=== PATIENT | male | born 1960 | race Caucasian/White ===

== ENCOUNTER 2023-10-25 14:10 | Outpatient (AMB) | payer BC, SELFPAY ==
--- NOTE | 2023-10-25 14:44 | MHC.PC.OV ---
Vital Signs 10/25/23 14:54 Height 5 ft 8 in Weight 279 lb 2 oz BMI 42.4 BP 104/62 Blood Pressure Location Lt brachial Position Sitting Respiration 16 Pulse 67 Pulse Source Pulse Oximeter Temp 98.6 F Temp Source Oral Pulse Oximetry (%) 97 Oxygen Delivery Method Room Air Intake Visit Reasons: Est Care DM, HTN Intake Note: New patient visit Packing Room Inspector Required: No Allergies lisinopril [LISINOPRIL] Allergy (Unknown, Verified 10/25/23 14:47) COUGH Wwoucgv-HYY-PtI Reductase Inhibitor [CXAMPMQ-LRZ-VAK REDUCTASE INHIBITOR] Allergy (Unknown, Verified 10/25/23 14:47) MUSCLE ACHES sulfa Allergy (Unknown, Uncoded 10/25/23 14:47) unknown' Medication List - Last Reconciled 10/25/23 by Mila Curtis MD atenolol 100 mg PO DAILY losartan 25 mg PO DAILY metformin ER 500 mg PO BID tirzepatide (Mounjaro) 7.5 mg (0.75 mL) subcut QWEEK 12 weeks Tobacco use date assessed: 10/25/23 Dental Screening Dental Screen Date: 10/25/23 Did you have a dental visit in the last 12 months?: Yes Did you have a dental problem in the last 6 months where you did not have access to dental care?: No Was dental information given to patient?: Patient has dentist HPI HPI Comments History of Present Illness Details The patient is a 62 year old male with a past medical history of diabetes, htn, GERD, low back pain, OA, presenting for follow up Type 2 diabetes: generally well controlled: On metformin, mounjaro 5mg weekly. Feels like he has adjusted to the mounjaro and it is not suppressing his appetite any longer. Statin intolerant. Or ARB CV: Off hctz. BP still on lower side. Asymptomatic. On atenolol losartan. Denies chest pain, denies shortness of breath OA: s/p b/l knee replacement 2020 and 2021. Dental prophylaxis per ortho Has colonoscopy rescheduled for December. This was due in 2022. [facility] Surgical History (Updated 10/25/23 @ 15:24 by Morenita Sandoval CMA) History of knee replacement Family History (Updated 10/25/23 @ 15:14 by Morenita Sandoval CMA) Mother Hypertension Diabetes Social History Housing: House Patient Tobacco Use Status: Never used Tobacco e-Cigarette/Vaping Use: Never Used Substance Use Type: Marijuana service: No Current occupational status: employed Current occupation: Self employeed Current occupational exposures/hazards: No Cognitive needs: No Hearing needs: No Vision needs: No Questionnaire PHQ-9 Over the last 2 weeks, how often have you been bothered by any of the following problems? 1. Little interest or pleasure in doing things: not at all 2. Feeling down, depressed, or hopeless: not at all 3. Trouble falling or staying asleep, or sleeping too much: nearly every day 4. Feeling tired or having little energy: not at all 5. Poor appetite or overeating: not at all 6. Feeling bad about yourself - or that you are a failure or have let yourself or your family down: not at all 7. Trouble concentrating on things, such as reading the newspaper or watching television: not at all 8. Moving or speaking so slowly that other people could have noticed. Or the opposite - being so fidgety or restless that you have been moving around a lot more than usual: not at all 9. Thoughts that you would be better off or of hurting yourself in some way: not at all Total score: 3 Depression Screening Interpretation: Negative (noted) Depression Screening Done: Yes 40948 - PHQ-9 Billing: Yes Source: Developed by Drs. Melvin Donnelly, Yi Crump, Jayy Mccarthy and colleagues, with an educational edson from [employer]. Thrive Questionnaire Date Thrive assessed: 10/25/23 I am a: Patient What is your living situation today?: I have a steady place to live Within the past 12 months, did the food you bought not last and you didn't have the money to get more?: Never true Within the past 12 months, did you worry whether your food would run out before you got money to buy more?: Never true Do you have trouble paying for medicines?: No Do you have trouble getting transportation to medical appointments?: No Do you have trouble paying your heating and electricity bill?: No Do you have trouble taking care of your child, family member or friend?: No Do you have trouble with day-to-day activities such as bathing, preparing meals, shopping, managing finances, etc.?: No Are you currently unemployed and looking for a job?: No Are you interested in more education?: No Please select the resources that you would like help with: None Currently or been in a relationship where the following occur: no concerns reported THRIVE Score: 0 AUDIT C Alcohol Use Questionnaire (AUDIT-C) 1. How often do you have a drink containing alcohol?: 2-4 times a month 2. How many drinks containing alcohol do you have on a typical day when you are drinking?: 1 or 2 3. How often do you have six or more drinks on one occasion?: Less than monthly Total Score: 3 ANA-7 AMB Questionnaire ANA-7 Date ANA - 7 assessed: 10/25/23 Feeling nervous, anxious, or on edge: 0 = Not at all Not being able to stop or control worryin = Not at all Worrying too much about different things: 0 = Not at all Trouble relaxin = Not at all Being so restless that it is hard to sit still: 0 = Not at all Becoming easily annoyed or irritable: 0 = Not at all Feeling afraid as if something awful might happen: 0 = Not at all Total ANA-7 score (0-4 normal; 5-9 mild; 10-14 moderate; 15-21 severe): 0 Source: Developed by Drs. Melvin Donnelly, Yi Crump, Jayy Mccarthy and colleagues, with an educational edson from [employer]. ANA-7 Assessment Billing ANA-7 Assessment Tool: ANA-7 Assessment 64281 Review of Systems Const Details: ROS CONSTITUTIONAL: Denies weight loss, fever and chills. HEENT: Denies changes in vision and hearing. RESPIRATORY: Denies SOB and cough. CV: Denies palpitations and CP GI: Denies abdominal pain, nausea, vomiting and diarrhea. : Denies dysuria and urinary frequency. MSK: Denies myalgia and joint pain. SKIN: Denies rash and pruritus. NEUROLOGICAL: Denies headache and syncope. PSYCHIATRIC: Denies recent changes in mood. Denies anxiety and depression. Physical exam (Primary Care) Vital Signs: Last Vital Signs Temp 98.6 F 10/25/23 14:54 Pulse 67 10/25/23 14:54 Resp 16 10/25/23 14:54 BP 104/62 10/25/23 14:54 Pulse Ox 97 10/25/23 14:54 Oxygen Delivery Method Room Air 10/25/23 14:54 PHYSICAL EXAM: GENERAL: Alert and oriented x 3. No acute distress. Well-nourished. EYES: EOMI. Anicteric. HENT: Moist mucous membranes. No scleral icterus. No cervical lymphadenopathy. LUNGS: Clear to auscultation bilaterally. No accessory muscle use.? CARDIOVASCULAR: Regular rate and rhythm. No murmur. No JVD.? ABDOMEN: Soft, non-tender and non-distended. No palpable masses.? EXTREMITIES: No edema. Non-tender.?SKIN: No rashes or lesions. Warm. NEUROLOGIC: No focal neurological deficits. CN II-XII grossly intact PSYCHIATRIC: Cooperative. Appropriate mood and affect. BMI result Body Mass Index 42.4 Tobacco/Smoking Status: Tobacco use Status Tobacco use date assessed 10/25/23 10/25/23 14:53 Patient Tobacco Use Status Never used Tobacco 10/25/23 15:15 e-Cigarette/Vaping Use Never Used 10/25/23 15:15 PHQ-9: PHQ-9 Score PHQ-9: Total score 3 10/25/23 15:15 Depression Screening Interpretation: Negative (noted) Thrive Assessment: Date of Thrive Assessment Date Thrive assessed 10/25/23 10/25/23 15:15 Currently or been in a relationship where the following occur: no concerns reported Assessment and Plan Assessment & Plan (1) Hypertension: Comment: controlled on current medications. Advised to call if symptoms of hypotension and will med adjust Code(s): I10 - Essential (primary) hypertension Qualifiers: Hypertension type: primary hypertension Qualified Code(s): I10 - Essential (primary) hypertension (2) Type 2 diabetes mellitus: Comment: controlled on current medications. due for a1c which is ordered. increase mounjaro to 7.5 to aid weight loss Code(s): E11.9 - Type 2 diabetes mellitus without complications Qualifiers: Diabetes mellitus complication detail: with polyneuropathy Diabetes mellitus complication status: with neurologic complications Diabetes mellitus long line teamster insulin use: without long line teamster use Qualified Code(s): E11.42 - Type 2 diabetes mellitus with diabetic polyneuropathy (3) Obesity: Code(s): E66.9 - Obesity, unspecified Qualifiers: Body mass index: BMI 40.0-44.9 Obesity classification: adult class 3 (BMI >= 40) Obesity type: due to excess calories Serious obesity comorbidity presence: with serious comorbidity Qualified Code(s): E66.01 - Morbid (severe) obesity due to excess calories; Z68.41 - Body mass index [BMI] 40.0-44.9, adult Orders: Orders Hemoglobin A1c Today E11.42 - Type 2 diabetes mellitus with diabetic polyneuropathy, E66.01 - Morbid (severe) obesity due to excess calories, I10 - Essential (primary) hypertension, Z68.41 - Body mass index [BMI] 40.0-44.9, adult Comprehensive Met. Panel Today E11.42 - Type 2 diabetes mellitus with diabetic polyneuropathy, E66.01 - Morbid (severe) obesity due to excess calories, I10 - Essential (primary) hypertension, Z68.41 - Body mass index [BMI] 40.0-44.9, adult TSH reflex Free T4 Today E11.42 - Type 2 diabetes mellitus with diabetic polyneuropathy, E66.01 - Morbid (severe) obesity due to excess calories, I10 - Essential (primary) hypertension, Z68.41 - Body mass index [BMI] 40.0-44.9, adult Medications: New tirzepatide (Mounjaro) 7.5 mg (0.75 mL) subcut QWEEK 12 weeks 9 mL 3RF Coding Level of Care Code Est Pt Level 4 (23060) Complex EM visit Add On G2211 Diagnoses Primary hypertension I10 Hypertension type: primary hypertension Type 2 diabetes mellitus with diabetic polyneuropathy, without long-term current use of insulin E11.42 Diabetes mellitus complication detail: with polyneuropathy Diabetes mellitus complication status: with neurologic complications Diabetes mellitus custodial insulin use: without long line teamster use Class 3 severe obesity due to excess calories with serious comorbidity and body mass index (BMI) of 40.0 to 44.9 in adult E66.01; Z68.41 Body mass index: BMI 40.0-44.9 Obesity classification: adult class 3 (BMI >= 40) Obesity type: due to excess calories Serious obesity comorbidity presence: with serious comorbidity Additional Codes ANA-7 Assessment Billing - ANA-7 Assessment Tool: ANA-7 Assessment [id number] ([id number]) Time Spent (min) 38
[2023-10-25 14:54] VITALS: BP 104/62; PULSE 67; RESP 16; TEMP 37; O2SAT 97; BMI 42.4
== END 2023-10-25 15:31 | disposition home or self-care (01) ==
LOC: HO.HMGFM 14:30
PROVIDERS: PCP Internal Medicine; Visit Provider Internal Medicine
DX: I10 Essential (primary) hypertension (principal); E11.42 Type 2 diabetes mellitus with diabetic polyneuropathy; E66.01 Morbid (severe) obesity due to excess calories; Z68.41 Body mass index [BMI] 40.0-44.9, adult
CPT/HCPCS: 99214; G2211

== ENCOUNTER 2024-02-29 11:27 | Outpatient (REF) | payer BC, SELFPAY ==
[2024-02-29 14:51] LABS: Estimated Average Glucose 111 mg/dL; Hemoglobin A1c % 5.5 % (<6.0)
[2024-02-29 15:06] LABS: Alanine Aminotransferase 19 U/L (0-40); Albumin Level 4.1 g/dL (3.5-5.0); Alkaline Phosphatase 91 U/L (39-117); Anion Gap 12 (12-20); Aspartate Amino Transferase 17 U/L (5-37); Bilirubin Total 0.6 mg/dL (0.0-1.0); Blood Urea Nitrogen 13 mg/dL (9-16); Calcium 9.6 mg/dL (8.4-10.2); Carbon Dioxide 26 mmol/L (22-29); Chloride 103 mmol/L (96-108); Estimated Glomerular Filt Rate > 60; Glucose Random 100 mg/dL (60-115); Potassium 4.1 mmol/L (3.3-5.1); Sodium 137 mmol/L (135-145); Total Protein 7.8 g/dL (6.5-8.0)
[2024-02-29 15:24] LABS: TSH reflex Free T4 2.14 uIU/mL (0.32-4.0)
== END 2024-02-29 11:28 | disposition home or self-care (01) ==
LOC: HO.WFDLDS 11:27
PROVIDERS: Visit Provider Internal Medicine
DX: E66.01 Morbid (severe) obesity due to excess calories (principal); Z68.41 Body mass index [BMI] 40.0-44.9, adult; E11.42 Type 2 diabetes mellitus with diabetic polyneuropathy; I10 Essential (primary) hypertension
CPT/HCPCS: 36415; 80053; 83036; 84443

== ENCOUNTER 2024-02-29 12:55 | Outpatient (AMB) | payer BC, SELFPAY ==
--- NOTE | 2024-02-29 13:16 | MHC.PC.OV ---
Vital Signs 02/29/24 13:17 Height 5 ft 8 in Weight 271 lb 8 oz BMI 41.3 BP 132/74 Blood Pressure Location Rt brachial Position Sitting Respiration 15 Pulse 88 Pulse Oximetry (%) 96 Oxygen Delivery Method Room Air Intake Visit Reasons: 4 mth follow up DM, HTN Intake Note: follow up on htn, dm. patient patient just had colonoscopy in december Allergies lisinopril [LISINOPRIL] Allergy (Unknown, Verified 02/29/24 13:21) COUGH Hqjkzbd-AME-NgO Reductase Inhibitor [DSMIYGT-RPA-XWR REDUCTASE INHIBITOR] Allergy (Unknown, Verified 02/29/24 13:21) MUSCLE ACHES sulfa Allergy (Unknown, Uncoded 10/25/23 14:47) unknown' Tobacco use date assessed: 10/25/23 Dental Screening Dental Screen Date: 10/25/23 HPI HPI Comments History of Present Illness Details The patient is a 63 year old male with a past medical history of diabetes, htn, GERD, low back pain, OA, presenting for follow up Type 2 diabetes: generally well controlled: On metformin, mounjaro. Tolerating well. Statin intolerant. On ARB CV: Off hctz. BP still on lower side. Asymptomatic. On atenolol, losartan. Denies chest pain, denies shortness of breath OA: s/p b/l knee replacement 2020 and 2021. Dental prophylaxis per ortho Colonoscopy December 2023 - 10 years. ROS CONSTITUTIONAL: Denies weight loss, fever and chills. HEENT: Denies changes in vision and hearing. RESPIRATORY: Denies SOB and cough. CV: Denies palpitations and CP GI: Denies abdominal pain, nausea, vomiting and diarrhea. : Denies dysuria and urinary frequency. MSK: Denies new myalgia and joint pain. SKIN: jock rash NEUROLOGICAL: Denies headache PSYCHIATRIC: Denies recent changes in mood. PHYSICAL EXAM: GENERAL: Alert and oriented x 3. NAD EYES: EOMI. Anicteric. HENT: Moist mucous membranes. No scleral icterus. No cervical lymphadenopathy. LUNGS: Clear to auscultation bilaterally. CARDIOVASCULAR: Regular rate and rhythm. No murmur. No JVD. ABDOMEN: Soft, non-tender +bs EXTREMITIES: No edema. Non-tender. SKIN: No rashes or lesions. Warm. NEUROLOGIC: No focal neurological deficits. CN II-XII grossly intact PSYCHIATRIC: Cooperative. Appropriate mood and affect [facility] Medical History Osteoarthritis Nephrolithiasis Hypertension Type 2 diabetes mellitus Obesity GERD (gastroesophageal reflux disease) Surgical History History of left knee replacement History of total right knee replacement (TKR) Family History Mother Hypertension Diabetes Social History Housing: House Patient Tobacco Use Status: Never used Tobacco e-Cigarette/Vaping Use: Never Used Substance Use Type: Marijuana service: No Current occupational status: employed Current occupation: Self employeed Current occupational exposures/hazards: No Cognitive needs: No Hearing needs: No Vision needs: No Questionnaire Thrive Questionnaire Date Thrive assessed: 10/25/23 ANA-7 AMB Questionnaire ANA-7 Date ANA - 7 assessed: 10/25/23 Source: Developed by Drs. Melvin Donnelly, Yi Crump, Jayy Mccarthy and colleagues, with an educational edson from [employer]. Physical exam (Primary Care) Vital Signs: Last Vital Signs Pulse 88 02/29/24 13:17 Resp 15 02/29/24 13:17 BP 132/74 02/29/24 13:17 Pulse Ox 96 02/29/24 13:17 Oxygen Delivery Method Room Air 02/29/24 13:17 BMI result Body Mass Index 41.3 Tobacco/Smoking Status: Tobacco use Status Tobacco use date assessed 10/25/23 02/29/24 13:23 Patient Tobacco Use Status Never used Tobacco 02/29/24 13:23 e-Cigarette/Vaping Use Never Used 02/29/24 13:23 Thrive Assessment: Date of Thrive Assessment Date Thrive assessed 10/25/23 02/29/24 13:23 Assessment and Plan Assessment & Plan (1) Type 2 diabetes mellitus: Comment: controlled on current medications. due for a1c which is ordered. increase mounjaro to 7.5 to aid weight loss Code(s): E11.9 - Type 2 diabetes mellitus without complications Qualifiers: Diabetes mellitus complication detail: with polyneuropathy Diabetes mellitus complication status: with neurologic complications Diabetes mellitus senior living insulin use: without medical terminologist use Qualified Code(s): E11.42 - Type 2 diabetes mellitus with diabetic polyneuropathy Plan: Controlled on current medications. Labs ordered for next visit. (2) Hypertension: Code(s): I10 - Essential (primary) hypertension Qualifiers: Hypertension type: primary hypertension Qualified Code(s): I10 - Essential (primary) hypertension Plan: controlled on current medications (3) Obesity: Code(s): E66.9 - Obesity, unspecified Qualifiers: Body mass index: BMI 40.0-44.9 Obesity classification: adult class 3 (BMI >= 40) Obesity type: due to excess calories Serious obesity comorbidity presence: with serious comorbidity Qualified Code(s): E66.01 - Morbid (severe) obesity due to excess calories; Z68.41 - Body mass index [BMI] 40.0-44.9, adult Orders: Orders Microalbumin, Random (w Creat) 02/29/24 E11.42 - Type 2 diabetes mellitus with diabetic polyneuropathy, E66.01 - Morbid (severe) obesity due to excess calories, I10 - Essential (primary) hypertension, Z68.41 - Body mass index [BMI] 40.0-44.9, adult Lipid Panel 02/29/24 E11.42 - Type 2 diabetes mellitus with diabetic polyneuropathy, E66.01 - Morbid (severe) obesity due to excess calories, I10 - Essential (primary) hypertension, Z68.41 - Body mass index [BMI] 40.0-44.9, adult Complete Blood Count Auto Diff 02/29/24 E11.42 - Type 2 diabetes mellitus with diabetic polyneuropathy, E66.01 - Morbid (severe) obesity due to excess calories, I10 - Essential (primary) hypertension, Z68.41 - Body mass index [BMI] 40.0-44.9, adult Medications: New clotrimazole-betamethasone 1-0.05 % 1 appl topical BID 45 grams 3RF 4 weeks Coding Level of Care Code Est Pt Level 4 (51038) Diagnoses Type 2 diabetes mellitus with diabetic polyneuropathy, without long-term current use of insulin E11.42 Diabetes mellitus complication detail: with polyneuropathy Diabetes mellitus complication status: with neurologic complications Diabetes mellitus senior living insulin use: without medical terminologist use Primary hypertension I10 Hypertension type: primary hypertension Class 3 severe obesity due to excess calories with serious comorbidity and body mass index (BMI) of 40.0 to 44.9 in adult E66.01; Z68.41 Body mass index: BMI 40.0-44.9 Obesity classification: adult class 3 (BMI >= 40) Obesity type: due to excess calories Serious obesity comorbidity presence: with serious comorbidity
[2024-02-29 13:17] VITALS: BP 132/74; PULSE 88; RESP 15; O2SAT 96; BMI 41.3
== END 2024-02-29 13:59 | disposition home or self-care (01) ==
PROVIDERS: PCP Internal Medicine; Visit Provider Internal Medicine
DX: E11.42 Type 2 diabetes mellitus with diabetic polyneuropathy (principal); I10 Essential (primary) hypertension; E66.01 Morbid (severe) obesity due to excess calories; Z68.41 Body mass index [BMI] 40.0-44.9, adult
CPT/HCPCS: 99214

== ENCOUNTER 2024-05-08 13:57 | Outpatient (AMB) | payer BC, SELFPAY ==
--- NOTE | 2024-05-08 14:26 | A.OFFPC_ITS ---
Intake Visit Reasons: Testicle pain Allergies lisinopril [LISINOPRIL] Allergy (Unknown, Verified 02/29/24 13:21) COUGH Ismlktb-SJL-VrU Reductase Inhibitor [FEDHJJU-SKP-ULD REDUCTASE INHIBITOR] Allergy (Unknown, Verified 02/29/24 13:21) MUSCLE ACHES sulfa Allergy (Unknown, Uncoded 10/25/23 14:47) unknown' Tobacco use date assessed: 10/25/23 Dental Screening Dental Screen Date: 10/25/23 HPI HPI Comments History of Present Illness Details The patient is a 63 year old male with a past medical history of diabetes, htn, GERD, low back pain, OA, presenting for follow up He reports history of chronic intermittent left lower quadrant, pelvic pain. This is has worsened in frequency and intensity over the past month after doing some heavy lifting. The pain is worse when leaning back, standing up. Feels weak when coughing, lifting. On exam no bulge or weakness appreciated. Making BM ok. No change in stools. Believes he was told in past imaging of kidney stones that he had some type of hernia Type 2 diabetes: generally well controlled: On metformin, mounjaro. Tolerating well. Statin intolerant. On ARB CV: Off hctz. BP still on lower side. Asymptomatic. On atenolol, losartan. Denies chest pain, denies shortness of breath OA: s/p b/l knee replacement 2020 and 2021. Dental prophylaxis per ortho Colonoscopy December 2023 - 10 years. ROS see HPI PHYSICAL EXAM: GENERAL: Alert and oriented x 3. NAD EYES: EOMI. Anicteric. HENT: Moist mucous membranes. No scleral icterus. No cervical lymphadenopathy. LUNGS: Clear to auscultation bilaterally. CARDIOVASCULAR: Regular rate and rhythm. No murmur. No JVD. ABDOMEN: Soft, non-tender +bs : No visible or palpable hernias. No testicular pain EXTREMITIES: No edema. Non-tender. SKIN: No rashes or lesions. Warm. NEUROLOGIC: No focal neurological deficits. CN II-XII grossly intact PSYCHIATRIC: Cooperative. Appropriate mood and affect [facility] Medical History Osteoarthritis Nephrolithiasis Hypertension Type 2 diabetes mellitus Obesity GERD (gastroesophageal reflux disease) Surgical History History of left knee replacement History of total right knee replacement (TKR) Family History Mother Hypertension Diabetes Social History Housing: House Patient Tobacco Use Status: Never used Tobacco e-Cigarette/Vaping Use: Never Used Substance Use Type: Marijuana service: No Current occupational status: employed Current occupation: Self employeed Current occupational exposures/hazards: No Cognitive needs: No Hearing needs: No Vision needs: No Questionnaire PHQ-9 Over the last 2 weeks, how often have you been bothered by any of the following problems? 1. Little interest or pleasure in doing things: not at all 2. Feeling down, depressed, or hopeless: not at all 3. Trouble falling or staying asleep, or sleeping too much: not at all 4. Feeling tired or having little energy: not at all 5. Poor appetite or overeating: not at all 6. Feeling bad about yourself - or that you are a failure or have let yourself or your family down: not at all 7. Trouble concentrating on things, such as reading the newspaper or watching television: not at all 8. Moving or speaking so slowly that other people could have noticed. Or the opposite - being so fidgety or restless that you have been moving around a lot more than usual: not at all 9. Thoughts that you would be better off or of hurting yourself in some way: not at all Total score: 0 Source: Developed by Drs. Melvin Donnelly, Yi Crump, Jayy Mccarthy and colleagues, with an educational edson from [employer]. Thrive Questionnaire Date Thrive assessed: 10/25/23 I am a: Patient What is your living situation today?: I have a steady place to live Within the past 12 months, did the food you bought not last and you didn't have the money to get more?: Never true Within the past 12 months, did you worry whether your food would run out before you got money to buy more?: Never true Do you have trouble paying for medicines?: No Do you have trouble getting transportation to medical appointments?: No Do you have trouble paying your heating and electricity bill?: No Do you have trouble taking care of your child, family member or friend?: No Do you have trouble with day-to-day activities such as bathing, preparing meals, shopping, managing finances, etc.?: No Are you currently unemployed and looking for a job?: No Are you interested in more education?: No Please select the resources that you would like help with: None Currently or been in a relationship where the following occur: I choose not to answer THRIVE Score: 0 AUDIT C Alcohol Use Questionnaire (AUDIT-C) 1. How often do you have a drink containing alcohol?: 2-3 times a week 2. How many drinks containing alcohol do you have on a typical day when you are drinking?: 1 or 2 3. How often do you have six or more drinks on one occasion?: Never Total Score: 3 ANA-7 AMB Questionnaire ANA-7 Date ANA - 7 assessed: 10/25/23 Feeling nervous, anxious, or on edge: 0 = Not at all Not being able to stop or control worryin = Not at all Worrying too much about different things: 0 = Not at all Trouble relaxin = Not at all Being so restless that it is hard to sit still: 2 = More than half the days Becoming easily annoyed or irritable: 0 = Not at all Feeling afraid as if something awful might happen: 0 = Not at all Total ANA-7 score (0-4 normal; 5-9 mild; 10-14 moderate; 15-21 severe): 2 Source: Developed by Drs. Melvin Donnelly, Yi Crump, Jayy Mccarthy and colleagues, with an educational edson from [employer]. Physical exam (Primary Care) Tobacco/Smoking Status: Tobacco use Status Tobacco use date assessed 10/25/23 05/08/24 14:27 Patient Tobacco Use Status Never used Tobacco 05/08/24 14:27 e-Cigarette/Vaping Use Never Used 05/08/24 14:27 PHQ-9: PHQ-9 Score PHQ-9: Total score 0 05/09/24 14:41 Thrive Assessment: Date of Thrive Assessment Date Thrive assessed 10/25/23 05/08/24 14:27 Currently or been in a relationship where the following occur: I choose not to answer Coding Level of Care Code Est Pt Level 4 (61154) Diagnoses Left lower quadrant pain R10.32 Pelvic pain in male R10.2 Assessment & Plan Assessment & Plan (1) Left lower quadrant pain: Code(s): R10.32 - Left lower quadrant pain Category: Medical Plan: CT scan and general surgery referral OTC medications without any effect. Tramadol has also not provided sufficient relief. Will order oxycodone as needed short term (2) Pelvic pain in male: Code(s): R10.2 - Pelvic and perineal pain Category: Medical Plan: see above. He will go to the ER for any acute worsening of pain Orders: Orders CT abdomen pelvis w IV con 05/08/24 R10.2 - Pelvic and perineal pain, R10.32 - Left lower quadrant pain Referrals General Surgery Referral R10.2 - Pelvic and perineal pain, R10.32 - Left lower quadrant pain Medications: New oxycodone Partial Fill upon patient request. 5 mg PO Q6H PRN 28 tabs 0RF pain 7 days tretinoin 0.1% 1 appl topical BEDTIME 45 grams 2RF
== END 2024-05-08 14:42 | disposition home or self-care (01) ==
LOC: HO.HMCFM 13:58
PROVIDERS: PCP Internal Medicine; Visit Provider Internal Medicine
DX: R10.32 Left lower quadrant pain (principal); R10.2 Pelvic and perineal pain

== ENCOUNTER → 2024-05-08 13:57 | Outpatient (BNVA) | payer BC, SELFPAY | PROVIDERS: PCP Internal Medicine; Visit Provider Internal Medicine ==

== ENCOUNTER 2024-05-18 10:15 | Outpatient (AMB) | payer BC, SELFPAY ==
--- NOTE | 2024-05-18 10:21 | A.OFFVIS_ITS ---
Vital Signs 3 05/18/24 10:37 Height 5 ft 8 in Weight 269 lb 6 oz BMI 41.0 BP 152/73 H Blood Pressure Location Lt brachial Position Sitting Pulse 56 Intake Visit Reasons: LLQ pain Intake Note: Patient is seen in office for evaluation of left lower quadrant pain. Pt c/o: thinks might have a left groin hernia, worse when sitting, onset about 3 weeks, does not feel a lump, when coughing feels some tightness in the area CT: ordered by Mila Vences ref. Mila Vences Seam Hammerer Required: No Accompanied by: Self / Same As Patient Allergies lisinopril [LISINOPRIL] Allergy (Unknown, Verified 05/18/24 10:38) COUGH Lzcwlqd-AUR-InT Reductase Inhibitor [MDPUMVP-IQY-HRH REDUCTASE INHIBITOR] Allergy (Unknown, Verified 05/18/24 10:38) MUSCLE ACHES sulfa Allergy (Unknown, Uncoded 05/18/24 10:38) unknown' Medication List - Last Reconciled 05/18/24 by Grayson Drummond MD amoxicillin 2,000 mg (4 x 500 mg) PO ONCE PRN 90 days atenolol 100 mg PO DAILY clotrimazole-betamethasone 1-0.05 % 1 appl topical BID 4 weeks losartan 50 mg PO DAILY metformin ER 500 mg PO BID omeprazole 10 mg PO DAILY oxycodone 5 mg PO Q6H PRN 7 days tirzepatide (Mounjaro) 7.5 mg (0.75 mL) subcut QWEEK 12 weeks tretinoin 0.1% 1 appl topical BEDTIME HPI Comments Details: 63-year-old male patient, employed as a daigle presenting with complaints of left groin pain. This began approximately 3 weeks ago with no particular inciting event. He was apparently lifting logs in the [place] but did not feel a tear. The pain seems to be worse when sitting, especially at the end of the day. He denies associated symptoms including nausea, vomiting, diarrhea, constipation, bloody stool or a palpable lump. The pain is better in the morning and worse at night. He denies a previous history of hernias or hernia surgery. Arrangements are being made for a CT abdomen and pelvis by Dr. Vences. [facility] Medical History Osteoarthritis Nephrolithiasis Hypertension Type 2 diabetes mellitus Obesity GERD (gastroesophageal reflux disease) Surgical History History of left knee replacement History of total right knee replacement (TKR) Family History Mother Hypertension Diabetes Social History Housing: House Patient Tobacco Use Status: Never used Tobacco e-Cigarette/Vaping Use: Never Used Substance Use Type: Marijuana service: No Current occupational status: employed Current occupation: Self employeed Current occupational exposures/hazards: No Cognitive needs: No Hearing needs: No Vision needs: No Review of Systems Const All systems reviewed & are unremarkable except as noted in HPI and below Denies chills, Denies fever(s), Denies headache(s), Denies poor appetite and Denies weakness ENT Denies headache(s) Card Denies chest pain, Denies irregular heart rhythm, Denies palpitations and Denies dyspnea Resp Denies cough, Denies excessive phlegm production and Denies dyspnea GI Reports as per HPI, Reports abdominal pain, Denies bloating, Denies change in bowel habits, Denies constipation, Denies heartburn, Denies diarrhea, Denies nausea and Denies vomiting Denies difficulty urinating and Denies urinary frequency Musc Denies back pain, Denies muscle weakness and Denies numbness Skin/Breast Denies changing lesions and Denies unusual bruising Neuro Denies headache(s), Denies numbness, Denies paresthesias and Denies weakness Psych Denies anxiety and Denies depression Endo Denies palpitations Dominguez/Lymph Denies lymphadenopathy Physical Exam Const General: cooperative and no acute distress Nutritional Appearance: well nourished Orientation/consciousness: patient oriented x3 Limitations: no limitations HEENT Head: Yes normocephalic and Yes atraumatic Ears: hearing grossly normal bilaterally Resp Effort & Inspection: normal respiratory effort, no audible wheezes, no cough and no respiratory distress Cardio Jugular venous distension: no JVD GI Other: Examination in the standing position reveals no definite palpable hernia. Palpation within the inguinal canal also reveals no palpable hernia with Valsalva maneuvers. Patient points to an area in the left lower quadrant somewhat higher than would be expected for an inguinal hernia. Findings may suggest muscle strain rather than hernia. Inspection: Yes normal to inspection Palpation (GI): Soft to palpation, nontender, no guarding and not rigid Abdomen image: 2 1. Area described by patient as site of pain Skin Other: Warm, dry, no rash Neuro General: patient oriented x3 Extrem General: Yes no clubbing, cyanosis or edema Assessment & Plan Assessment & Plan (1) Left lower quadrant pain: Code(s): R10.32 - Left lower quadrant pain Category: Medical Plan 63-year-old male patient presenting with persistent pain in the left lower quadrant and left groin for the past 3 weeks which seems to be activity related. Examination today reveals no definite inguinal hernia. Review of a previous CT abdomen and pelvis from 2019 reveals no evidence of an inguinal hernia or other abdominal wall hernia. He is being scheduled for a repeat CT which would be helpful. I have asked him to call our office once the CT is been scheduled so I can review the scan and discussed the findings. He expressed understanding and agrees with the plan. Coding Level of Care Code New Pt Level 4 (77314) Diagnoses Left lower quadrant pain R10.32
[2024-05-18 10:37] VITALS: BP 152/73; PULSE 56; BMI 41.0
== END 2024-05-18 10:46 | disposition home or self-care (01) ==
PROVIDERS: PCP Internal Medicine; Referring Provider Internal Medicine; Visit Provider Surgery
DX: R10.32 Left lower quadrant pain (principal)
CPT/HCPCS: 99204

== ENCOUNTER → 2024-05-18 10:15 | Outpatient (BNVA) | payer BC, SELFPAY | PROVIDERS: PCP Internal Medicine; Referring Provider Internal Medicine; Visit Provider Surgery ==

== ENCOUNTER 2024-06-30 08:22 | Outpatient (AMB) | payer BC, SELFPAY ==
--- NOTE | 2024-06-30 08:27 | A.OFFPC_ITS ---
Vital Signs 06/30/24 08:30 Height 5 ft 8 in Weight 274 lb BMI 41.7 BP 118/70 Blood Pressure Location Rt brachial Position Sitting Respiration 13 Pulse 68 Pulse Source Pulse Oximeter Pulse Oximetry (%) 95 Oxygen Delivery Method Room Air Intake Visit Reasons: CPE Intake Note: annual physical Drinking Water Technician Required: No Allergies lisinopril [LISINOPRIL] Allergy (Unknown, Verified 06/30/24 08:27) COUGH Hiiudqc-UOR-UdI Reductase Inhibitor [LCHYDMY-ZTS-ZRN REDUCTASE INHIBITOR] Allergy (Unknown, Verified 06/30/24 08:27) MUSCLE ACHES sulfa Allergy (Unknown, Uncoded 05/18/24 10:38) unknown' Tobacco use date assessed: 10/25/23 Dental Screening Dental Screen Date: 06/30/24 Did you have a dental visit in the last 12 months?: Yes Did you have a dental problem in the last 6 months where you did not have access to dental care?: No Was dental information given to patient?: Patient has dentist HPI HPI Comments History of Present Illness Details The patient is a 63 year old male with a past medical history of diabetes, htn, GERD, low back pain, OA, presenting for physical exam Chronic intermittent left lower quadrant, pelvic pain has lessened in severity since he has stopped lifting-CT scan was denied-this was to evaluate for the presence of hernia as physical exam is limited due to body habitus. Saw surgery who was also hoping for CT. This is has worsened in frequency and intensity o leah the past month after doing some heavy lifting. The pain is worse when leaning back, standing up. Feels weak when coughing, lifting. On exam no bulge or weakness appreciated. Making BM ok. No change in stools. Believes he was told in past imaging of kidney stones that he had some type of hernia Type 2 diabetes: generally well controlled: On metformin, mounjaro. Tolerating well. Statin intolerant. On ARB CV: Off hctz. BP is well controlled. On atenolol, losartan. Denies chest pain, denies shortness of breath OA: s/p b/l knee replacement 2020 and 2021. Dental prophylaxis per ortho Colonoscopy December 2023 - 10 years. ROS see HPI PHYSICAL EXAM: GENERAL: Alert and oriented x 3. NAD EYES: EOMI. Anicteric. HENT: Moist mucous membranes. No scleral icterus. No cervical lymphadenopathy. LUNGS: Clear to auscultation bilaterally. CARDIOVASCULAR: Regular rate and rhythm. No murmur. No JVD. ABDOMEN: Soft, non-tender +bs : No visible or palpable hernias. No testicular pain EXTREMITIES: No edema. Non-tender. SKIN: No rashes or lesions. Warm. NEUROLOGIC: No focal neurological deficits. CN II-XII grossly intact PSYCHIATRIC: Cooperative. Appropriate mood and affect [facility] Medical History Osteoarthritis Nephrolithiasis Hypertension Type 2 diabetes mellitus Obesity GERD (gastroesophageal reflux disease) Surgical History History of left knee replacement History of total right knee replacement (TKR) Family History Mother Hypertension Diabetes Social History Housing: House Patient Tobacco Use Status: Never used Tobacco e-Cigarette/Vaping Use: Never Used Substance Use Type: Marijuana service: No Current occupational status: employed Current occupation: Self employeed Current occupational exposures/hazards: No Cognitive needs: No Hearing needs: No Vision needs: No Questionnaire PHQ-9 Over the last 2 weeks, how often have you been bothered by any of the following problems? 76737 - PHQ-9 Billing: Patient declined-do not bill Source: Developed by Drs. Melvin Donnelly, Yi Crump, Jayy Mccarthy and colleagues, with an educational edson from [employer]. Thrive Questionnaire Date Thrive assessed: 06/30/24 I am a: Patient What is your living situation today?: I have a steady place to live Within the past 12 months, did the food you bought not last and you didn't have the money to get more?: Never true Within the past 12 months, did you worry whether your food would run out before you got money to buy more?: Never true Do you have trouble paying for medicines?: No Do you have trouble getting transportation to medical appointments?: No Do you have trouble paying your heating and electricity bill?: No Do you have trouble taking care of your child, family member or friend?: No Do you have trouble with day-to-day activities such as bathing, preparing meals, shopping, managing finances, etc.?: No Are you currently unemployed and looking for a job?: No Are you interested in more education?: No Please select the resources that you would like help with: None Currently or been in a relationship where the following occur: I choose not to answer THRIVE Score: 0 ANA-7 AMB Questionnaire ANA-7 Date ANA - 7 assessed: 10/25/23 Feeling nervous, anxious, or on edge: 0 = Not at all Not being able to stop or control worryin = Not at all Worrying too much about different things: 0 = Not at all Trouble relaxin = Not at all Being so restless that it is hard to sit still: 0 = Not at all Becoming easily annoyed or irritable: 0 = Not at all Feeling afraid as if something awful might happen: 0 = Not at all Total ANA-7 score (0-4 normal; 5-9 mild; 10-14 moderate; 15-21 severe): 0 Source: Developed by Drs. Melvin Donnelly, Yi Crump, Jayy Mccarthy and colleagues, with an educational edson from [employer]. ANA-7 Assessment Billing ANA-7 Assessment Tool: ANA-7 Assessment 49502 Physical exam (Primary Care) Vital Signs: Last Vital Signs Pulse 68 06/30/24 08:30 Resp 13 06/30/24 08:30 BP 118/70 06/30/24 08:30 Pulse Ox 95 06/30/24 08:30 Oxygen Delivery Method Room Air 06/30/24 08:30 BMI result Body Mass Index 41.7 Tobacco/Smoking Status: Tobacco use Status Tobacco use date assessed 10/25/23 06/30/24 08:32 Patient Tobacco Use Status Never used Tobacco 06/30/24 08:32 e-Cigarette/Vaping Use Never Used 06/30/24 08:32 Thrive Assessment: Date of Thrive Assessment Date Thrive assessed 06/30/24 06/30/24 08:32 Currently or been in a relationship where the following occur: I choose not to answer Office Procedures Flu Questionnaire Does the patient have a severe egg allergy?: No Does the patient have severe life threatening allergies?: No Does the patient have a fever or illness today?: No Has the patient ever had Guillain-Wheaton Syndrome?: No Has the patient ever had any past reaction to a flu shot?: No Immunizations Fluarix Triv [id number] (PF) 45 mcg (15 mcg x 3)/0.5 mL IM syringe Performing Provider: Mila Curtis MD Performing Location: [facility] Administered by: Ernestina Dixon RN on 06/30/24 09:28 Dose Route Admin Location Dispensed Lot Number Expiration Date NDC Rolling Machine Operator Automatic 0.5 mL IM Left Deltoid 0.5 mL [id number] 01/01/25 [id number] AJ Tech VIS Given Date VIS Provided VIS Publication Date 06/30/24 Single Vaccine 21 Eligibility Eligibility Date Funding Source Not [facility] Eligible 06/30/24 Private Coding Level of Care Code Est Pt Prev Care 40-64y(12088) Diagnoses Physical exam Z00.00 Type 2 diabetes mellitus with diabetic polyneuropathy, without long-term current use of insulin E11.42 Diabetes mellitus long-term insulin use: without rat exterminator use Diabetes mellitus complication status: with neurologic complications Diabetes mellitus complication detail: with polyneuropathy Additional Codes ANA-7 Assessment Billing - ANA-7 Assessment Tool: ANA-7 Assessment [id number] ([id number]) Assessment & Plan Assessment & Plan (1) Physical exam: Code(s): Z00.00 - Encounter for general adult medical examination without abnormal findings Category: Medical Plan: Preventive measures discussed. Flu shot received (2) Type 2 diabetes mellitus: Code(s): E11.9 - Type 2 diabetes mellitus without complications Category: Medical Qualifiers: Diabetes mellitus rat exterminator insulin use: without long-term use Diabetes mellitus complication status: with neurologic complications Diabetes mellitus complication detail: with polyneuropathy Qualified Code(s): E11.42 - Type 2 diabetes mellitus with diabetic polyneuropathy Plan: Controlled on current medications. continue. Efforts toward weight loss. Annual eye exams Orders: Orders Prostate Specific Antigen Today E11.42 - Type 2 diabetes mellitus with diabetic polyneuropathy, I10 - Essential (primary) hypertension, Z12.5 - Encounter for screening for malignant neoplasm of prostate Hemoglobin A1c Today E11.42 - Type 2 diabetes mellitus with diabetic polyneuropathy, I10 - Essential (primary) hypertension, Z12.5 - Encounter for screening for malignant neoplasm of prostate Complete Blood Count Auto Diff Today E11.42 - Type 2 diabetes mellitus with diabetic polyneuropathy, I10 - Essential (primary) hypertension, Z12.5 - Encounter for screening for malignant neoplasm of prostate Microalbumin, Random (w Creat) Today E11.42 - Type 2 diabetes mellitus with diabetic polyneuropathy, I10 - Essential (primary) hypertension, Z12.5 - Encounter for screening for malignant neoplasm of prostate Influenza [id number] Immunization Today Z23 - Encounter for immunization Lipid Panel Today E11.42 - Type 2 diabetes mellitus with diabetic polyneuropathy, I10 - Essential (primary) hypertension, Z12.5 - Encounter for screening for malignant neoplasm of prostate Comprehensive Met. Panel Today E11.42 - Type 2 diabetes mellitus with diabetic polyneuropathy, I10 - Essential (primary) hypertension, Z12.5 - Encounter for screening for malignant neoplasm of prostate Medications: New tirzepatide (Mounjaro) 7.5 mg (0.5 mL) subcut QWEEK 6 mL 3RF atenolol 100 mg PO DAILY 90 tabs 3RF Changed From clotrimazole-betamethasone 1-0.05 % 1 appl topical BID 4 weeks 45 grams 3RF To clotrimazole-betamethasone 1-0.05 % patient will pay out of pocket 1 appl topical BID 45 grams 3RF 4 weeks Discontinued tirzepatide (Mounjaro) Discontinued Reason: Doctor's Order 7.5 mg (0.75 mL) subcut QWEEK 12 weeks 9 mL 3RF
[2024-06-30 08:30] VITALS: BP 118/70; PULSE 68; RESP 13; O2SAT 95; BMI 41.7
== END 2024-06-30 09:21 | disposition home or self-care (01) ==
PROVIDERS: PCP Internal Medicine; Visit Provider Internal Medicine
DX: Z00.00 Encounter for general adult medical examination without abnormal findings (principal); E11.42 Type 2 diabetes mellitus with diabetic polyneuropathy; Z23 Encounter for immunization

== ENCOUNTER → 2024-06-30 08:22 | Outpatient (BNVA) | payer BC, SELFPAY | PROVIDERS: PCP Internal Medicine; Visit Provider Internal Medicine | DX: Z00.00 Encounter for general adult medical examination without abnormal findings (principal); Z23 Encounter for immunization; E11.42 Type 2 diabetes mellitus with diabetic polyneuropathy; I10 Essential (primary) hypertension; Z79.84 Long term (current) use of oral hypoglycemic drugs; Z79.899 Other long term (current) drug therapy; Z96.653 Presence of artificial knee joint, bilateral | CPT/HCPCS: 90471; 90656; 96127 ==

== ENCOUNTER 2024-06-30 09:26 | Outpatient (REF) | payer BC, SELFPAY ==
[2024-06-30 11:48] LABS: MANUAL DIFF FLAG NO
[2024-06-30 11:53] LABS: Basophils Absolute Auto 0.1 X10*3/uL (0.0-0.2); Basophils Percent Auto 0.7 % (0-2); Eosinophils Absolute Auto 0.2 X10*3/uL (0.0-0.4); Eosinophils Percent Auto 1.9 % (0-4); Hematocrit 52.2 % (42.0-52.0); Hemoglobin 17.3 g/dl (14.0-18.0); Imm Gran Abs Auto 0.04 X10*3/uL (0.00-0.03); Imm Gran Pct Auto 0.5 % (0.0-0.4); Lymphocytes Absolute Auto 2.1 X10*3/uL (1.2-4.9); Mean Corpuscular HGB Conc 33.1 g/dl (31.0-36.0); Mean Corpuscular Hemoglobin 29.2 pg (27.0-33.0); Mean Platelet Volume 9.4 fL (9.4-12.4); Monocytes Absolute Auto 0.7 X10*3/uL (0.1-1.2); Monocytes Percent Auto 7.7 % (2-11); Neutrophils Absolute Auto 5.6 x10*3/uL (2.0-8.3); Neutrophils Percent Auto 65.2 % (45-73); Platelet Count 255 X10*3/uL (160-400); Red Blood Count 5.93 X10*6/uL (4.60-5.80); Red Cell Distribution Width 13.2 % (11.0-16.0); White Blood Count 8.6 X10*3/uL (4.8-10.8)
[2024-06-30 12:11] LABS: Estimated Average Glucose 117 mg/dL; Hemoglobin A1C 165.3457 umol/L; Hemoglobin A1c % 5.7 % (<6.0); Total Hemoglobin (HGBA1C) 4320.9327 umol/L
[2024-06-30 12:31] LABS: Alanine Aminotransferase 17 U/L (0-40); Albumin Level 4.2 g/dL (3.5-5.0); Alkaline Phosphatase 94 U/L (39-117); Anion Gap 13 (12-20); Aspartate Amino Transferase 22 U/L (5-37); Bilirubin Total 0.4 mg/dL (0.0-1.0); Blood Urea Nitrogen 16 mg/dL (9-16); Calcium 9.3 mg/dL (8.4-10.2); Carbon Dioxide 28 mmol/L (22-29); Chloride 102 mmol/L (96-108); Cholesterol 181 mg/dL (<200); Estimated Glomerular Filt Rate > 60; Glucose Random 97 mg/dL (60-115); HDL Cholesterol 38 mg/dL (>40); LDL Cholesterol Calculated 115 mg/dL (<100); Potassium 3.9 mmol/L (3.3-5.1); Sodium 139 mmol/L (135-145); Triglycerides 141 mg/dL (<150)
[2024-06-30 12:33] LABS: Prostate Specific Antigen 0.47 ng/mL (<0.05-4.0)
[2024-06-30 12:38] LABS: Creatinine Urine 180.64 mg/dL; Microalbum/Creatinine Ratio Ur 53.1 ug/mg cr (<30)
== END 2024-06-30 09:27 | disposition home or self-care (01) ==
LOC: HO.WFDLDS 09:26
PROVIDERS: Visit Provider Internal Medicine
DX: E11.42 Type 2 diabetes mellitus with diabetic polyneuropathy (principal); E66.01 Morbid (severe) obesity due to excess calories; Z68.41 Body mass index [BMI] 40.0-44.9, adult; I10 Essential (primary) hypertension; Z12.5 Encounter for screening for malignant neoplasm of prostate
CPT/HCPCS: 36415; 80053; 80061; 82043; 82570; 83036; 84153; 85025

== ENCOUNTER 2024-12-12 09:09 | Outpatient (AMB) | payer BC, SELFPAY ==
--- NOTE | 2024-12-12 09:17 | A.OFFPC_ITS ---
Vital Signs 12/12/24 09:23 Height 5 ft 8 in Weight 266 lb 2 oz BMI 40.5 BP 122/82 Blood Pressure Location Rt brachial Position Sitting Pulse 63 Pulse Source Pulse Oximeter Temp 98.6 F Temp Source Temporal Artery Scan Pulse Oximetry (%) 97 Oxygen Delivery Method Room Air Intake Visit Reasons: DM follow up Intake Note: Sergio presents in the office today for a DM follow up. Allergies lisinopril [LISINOPRIL] Allergy (Unknown, Verified 12/12/24 09:21) COUGH Fzqplhx-UNZ-LxX Reductase Inhibitor [OCCOVKH-OWQ-AUW REDUCTASE INHIBITOR] Allergy (Unknown, Verified 12/12/24 09:21) MUSCLE ACHES sulfa Allergy (Unknown, Uncoded 12/12/24 09:21) unknown' Medication List - Last Reconciled 12/12/24 by Mila Curtis MD atenolol 100 mg PO DAILY clotrimazole-betamethasone 1-0.05 % 1 appl topical BID 4 weeks losartan 50 mg PO DAILY metformin ER 500 mg PO DAILY omeprazole 10 mg PO DAILY oxycodone 5 mg PO Q6H PRN 7 days tirzepatide (Mounjaro) 7.5 mg (0.5 mL) subcut QWEEK tretinoin 0.1% 1 appl topical BEDTIME Tobacco use date assessed: 12/12/24 Dental Screening Dental Screen Date: 12/12/24 Did you have a dental visit in the last 12 months?: Yes Did you have a dental problem in the last 6 months where you did not have access to dental care?: No Was dental information given to patient?: Patient has dentist HPI HPI Comments History of Present Illness Details The patient is a 63 year old male with a past medical history of diabetes, htn, GERD, low back pain, OA, presenting for follow up Type 2 diabetes: A1C 6.1%. On metformin, mounjaro. Tolerating well. Statin intolerant. On ARB. CV: Off hctz. On atenolol, losartan. Blood pressure is well controlled. He has lost 8 pounds since his last visit Denies chest pain, denies shortness of breath OA: s/p b/l knee replacement 2020 and 2021. Dental prophylaxis per ortho. Amox refilled Colonoscopy December 2023 - 10 years. ROS see HPI PHYSICAL EXAM: GENERAL: Alert and oriented x 3. NAD EYES: EOMI. Anicteric. HENT: Moist mucous membranes. No scleral icterus. No cervical lymphadenopathy. LUNGS: Clear to auscultation bilaterally. CARDIOVASCULAR: Regular rate and rhythm. No murmur. No JVD. ABDOMEN: Soft, non-tender +bs : No visible or palpable hernias. No testicular pain EXTREMITIES: No edema. Non-tender. SKIN: No rashes or lesions. Warm. NEUROLOGIC: No focal neurological deficits. CN II-XII grossly intact PSYCHIATRIC: Cooperative. Appropriate mood and affect [facility] Medical History (Updated 06/30/24 @ 13:39 by Mila Curtis MD) Osteoarthritis Nephrolithiasis Hypertension Type 2 diabetes mellitus Obesity GERD (gastroesophageal reflux disease) Surgical History (Updated 11/16/24 @ 14:39 by Chela Jaime) History of colonoscopy (~12/28/23) History of left knee replacement History of total right knee replacement (TKR) Family History Mother Hypertension Diabetes Social History (Updated 12/12/24 @ 09:23 by Fani Chandler MA) Housing: House Alcohol intake: current Patient Tobacco Use Status: Never used Tobacco e-Cigarette/Vaping Use: Never Used Substance Use Type: Marijuana service: No Current occupational status: employed Current occupation: Self employeed Current occupational exposures/hazards: No Cognitive needs: No Hearing needs: No Vision needs: No Questionnaire PHQ-9 Over the last 2 weeks, how often have you been bothered by any of the following problems? 1. Little interest or pleasure in doing things: not at all 2. Feeling down, depressed, or hopeless: not at all 4. Feeling tired or having little energy: not at all 5. Poor appetite or overeating: not at all 6. Feeling bad about yourself - or that you are a failure or have let yourself or your family down: not at all 7. Trouble concentrating on things, such as reading the newspaper or watching television: not at all 8. Moving or speaking so slowly that other people could have noticed. Or the opposite - being so fidgety or restless that you have been moving around a lot more than usual: not at all 9. Thoughts that you would be better off or of hurting yourself in some way: not at all Depression Screening Interpretation: Negative Depression Screening Done: Yes 84493 - PHQ-9 Billing: Yes Source: Developed by Drs. Melvin Donnelly, Yi Crump, Jayy Mccarthy and colleagues, with an educational edson from [facility]. Thrive Questionnaire Date Thrive assessed: 12/08/24 I am a: Patient What is your living situation today?: I have a steady place to live Within the past 12 months, did the food you bought not last and you didn't have the money to get more?: Often true Within the past 12 months, did you worry whether your food would run out before you got money to buy more?: Never true Do you have trouble paying for medicines?: No Do you have trouble getting transportation to medical appointments?: No Do you have trouble paying your heating and electricity bill?: No Do you have trouble taking care of your child, family member or friend?: No Do you have trouble with day-to-day activities such as bathing, preparing meals, shopping, managing finances, etc.?: No Are you currently unemployed and looking for a job?: No Are you interested in more education?: No Please select the resources that you would like help with: None Currently or been in a relationship where the following occur: No concerns repo rted THRIVE Score: 1 AUDIT C Alcohol Use Questionnaire (AUDIT-C) 1. How often do you have a drink containing alcohol?: 2-3 times a week 2. How many drinks containing alcohol do you have on a typical day when you are drinking?: 1 or 2 3. How often do you have six or more drinks on one occasion?: Never Total Score: 3 ANA-7 AMB Questionnaire ANA-7 Date ANA - 7 assessed: 10/25/23 Feeling nervous, anxious, or on edge: 0 = Not at all Not being able to stop or control worryin = Not at all Worrying too much about different things: 0 = Not at all Trouble relaxin = Not at all Being so restless that it is hard to sit still: 0 = Not at all Becoming easily annoyed or irritable: 0 = Not at all Feeling afraid as if something awful might happen: 0 = Not at all Total ANA-7 score (0-4 normal; 5-9 mild; 10-14 moderate; 15-21 severe): 0 Source: Developed by Drs. Melvin Donnelly, Yi Crump, Jayy Mccarthy and colleagues, with an educational edson from [facility]. Physical exam (Primary Care) Vital Signs: Last Vital Signs Temp 98.6 F 12/12/24 09:23 Pulse 63 12/12/24 09:23 BP 122/82 12/12/24 09:23 Pulse Ox 97 12/12/24 09:23 Oxygen Delivery Method Room Air 12/12/24 09:23 BMI result Body Mass Index 40.5 Tobacco/Smoking Status: Tobacco use Status Tobacco use date assessed 12/12/24 12/12/24 09:28 Patient Tobacco Use Status Never used Tobacco 12/12/24 09:23 e-Cigarette/Vaping Use Never Used 12/12/24 09:23 Depression Screening Interpretation: Negative Thrive Assessment: Date of Thrive Assessment Date Thrive assessed 12/08/24 12/12/24 09:17 Currently or been in a relationship where the following occur: No concerns reported Results AMB Hemoglobin A1c AMB Hemoglobin A1c 6.1 % Last Edit by Fani Chandler MA on 12/12/24 09:58 Results Reviewed Results Reviewed: Laboratory Last Values Hgb A1c (Clinic) 6.1 % (4.0-6.0) H 12/12/24 09:57 Coding Level of Care Code Est Pt Level 4 (25957) Diagnoses Type 2 diabetes mellitus with diabetic polyneuropathy, without long-term current use of insulin E11.42 Diabetes mellitus complication detail: with polyneuropathy Diabetes mellitus complication status: with neurologic complications Diabetes mellitus oysterman insulin use: without correction use Primary hypertension I10 Hypertension type: primary hypertension Additional Codes PHQ-9 - 73373 - PHQ-9 Billing: Yes ([id number]) Assessment & Plan Assessment & Plan (1) Type 2 diabetes mellitus: Code(s): E11.9 - Type 2 diabetes mellitus without complications Category: Medical Qualifiers: Diabetes mellitus complication detail: with polyneuropathy Diabetes mellitus complication status: with neurologic complications Diabetes mellitus oysterman insulin use: without oysterman use Qualified Code(s): E11.42 - Type 2 diabetes mellitus with diabetic polyneuropathy (2) Hypertension: Code(s): I10 - Essential (primary) hypertension Category: Medical Qualifiers: Hypertension type: primary hypertension Qualified Code(s): I10 - Essential (primary) hypertension Plan DM-well controlled on current regimen. congratulated on interval weight loss HTN is well controlled on current medications Continue efforts towards weight loss, increased physical activity Orders: Orders Comprehensive Met. Panel 4 Months E11.42 - Type 2 diabetes mellitus with diabetic polyneuropathy Hemoglobin A1c 4 Months E11.42 - Type 2 diabetes mellitus with diabetic polyneuropathy Lipid Panel 4 Months E11.42 - Type 2 diabetes mellitus with diabetic polyneuropathy Microalbumin, Random (w Creat) 4 Months E11.42 - Type 2 diabetes mellitus with diabetic polyneuropathy AMB Hemoglobin A1c Today E11.42 - Type 2 diabetes mellitus with diabetic polyneuropathy Medications: New amoxicillin 4 cap oral once one hour prior to dental work 2,000 mg (4 x 500 mg) PO ONCE PRN 20 caps 1RF dental prophylaxis Changed From metformin ER 500 mg PO ONCE To metformin ER 500 mg PO DAILY 90 tabs 3RF
[2024-12-12 09:23] VITALS: BP 122/82; PULSE 63; TEMP 37; O2SAT 97; BMI 40.5
== END 2024-12-12 09:54 | disposition home or self-care (01) ==
LOC: HO.HMCFM 09:10
PROVIDERS: PCP Internal Medicine; Visit Provider Internal Medicine
DX: E11.42 Type 2 diabetes mellitus with diabetic polyneuropathy (principal); I10 Essential (primary) hypertension

== ENCOUNTER → 2024-12-12 09:09 | Outpatient (BNVA) | payer BC, SELFPAY | PROVIDERS: PCP Internal Medicine; Visit Provider Internal Medicine | DX: Z13.31 Encounter for screening for depression (principal); E11.42 Type 2 diabetes mellitus with diabetic polyneuropathy; I10 Essential (primary) hypertension | CPT/HCPCS: 83036; 96127 ==

== ENCOUNTER 2025-04-24 08:21 | Outpatient (REF) | payer BC, SELFPAY ==
--- OUTSIDE RECORDS SUMMARY | 2025-04-24 08:30 | XMS_ITS | Clinical Summary ---
Author Organization [facility] Address [address] [place] [id number] Phone Care Team Providers Care Behavioral Health Care Coordinator Name Role Phone Mila Dinh MD Primary Care Provider Social History Tobacco Use Types Packs/Day Years Used Date Smoking Tobacco: Never Assessed Education Answer Date Recorded Are you interested in more education? Not on shadi e 10/30/2022 Are you concerned about learning? Not on file 10/30/2022 No 10/30/2022 No 10/30/2022 Digital Access Answer Date Recorded No 11/28/2022 No 11/28/2022 No 11/28/2022 Reliable internet access at home? Not on file 11/28/2022 Device with a working camera? Not on file Sex and Gender Information Value Date Recorded Sex Assigned at Not on file Legal Sex Male 10:37 AM EST Gender Identity Not on file Sexual Orientation Not on file Plan of Treatment Health Maintenance Due Date Last Done Comments LIPID PANEL 1962 DEPRESSION SCREENING 1974 SMOKING Hx and SMOKELESS TOBACCO SCREENING 11/23/1975 HEPATITIS C SCREENING 1980 HIV ONE-TIME SCREENING (18-65 YEARS) 1980 COLOGUARD 11/23/2007 COLONOSCOPY 11/23/2007 COLORECTAL CANCER SCREENING 11/23/2007 FIT TEST 11/23/2007 FOBT 11/23/2007 SIGMOIDOSCOPY 11/23/2007 VIRTUAL COLONOSCOPY 11/23/2007 ZOSTER VACCINES (1 of 2) 2012 PNEUMOCOCCAL VACCINES (50+ years) (3 of 3 - PCV20 or PCV21) 11/06/2019 11/05/2014, 09/03/2008 Adult Td,Tdap Booster 11/05/2024 11/05/2014, 009 INFLUENZA VACCINE (#1) 2025 , 06/07/2019, 04/14/2018, Additional history exists COVID-19 VACCINE (2024- season) 2025 11/17/2020, 10/27/2020 RSV VACCINE (1 - 1-dose 75+ series) 2037 HEPATITIS A VACCINES Aged Out No long er eligible based on patient's age to complete this topic HIB VACCINES Aged Out No longer eligi ble based on patient's age to complete this topic MENINGOCOCCAL VACCINES (ACWY) Aged Out No longer eligible based on patient's age to complete this topic MENINGOCOCCAL VACCINES (B) Aged Out N o longer eligible based on patient's age to complete this topic Medical Devices Not on file Insurance O POS HMO POS HMO POS HMO POS [place] [address] [place] [address] [place] [address] [place] [address] [place] [address] [place] [address] HMO POS Care Teams Behavioral Health Care Coordinator Relationship Specialty Start Date End Date Mila Dinh MD PCP - General Internal Medicine 06/22/18 Additional Source Comments The information contained in this document represents components of the legal health record. It is not the complete legal health record.[facility]
[2025-04-24 11:47] LABS: MANUAL DIFF FLAG NO
[2025-04-24 11:54] LABS: Hematocrit 51.0 % (42.0-52.0); Hemoglobin 16.6 g/dl (14.0-18.0); Imm Gran Abs Auto 0.02 X10*3/uL (0.00-0.03); Imm Gran Pct Auto 0.2 % (0.0-0.4); Lymphocytes Absolute Auto 2.0 X10*3/uL (1.2-4.9); Mean Corpuscular HGB Conc 32.5 g/dl (31.0-36.0); Mean Corpuscular Hemoglobin 28.7 pg (27.0-33.0); Mean Corpuscular Volume 88.2 fL (80.0-98.0); NRBC Abs Auto 0.000 X10*3/uL (0.0-0.012); NRBC Pct Auto 0.0 /100WBC (0.0-0.2); Platelet Count 235 X10*3/uL (160-400); Red Blood Count 5.78 X10*6/uL (4.60-5.80); White Blood Count 8.8 X10*3/uL (4.8-10.8)
[2025-04-24 12:25] LABS: Alanine Aminotransferase 15 U/L (0-40); Albumin Level 4.4 g/dL (3.5-5.0); Alkaline Phosphatase 92 U/L (39-117); Anion Gap 10 (12-20); Aspartate Amino Transferase 28 U/L (5-37); Blood Urea Nitrogen 16 mg/dL (9-16); Calcium 9.4 mg/dL (8.4-10.2); Carbon Dioxide 30 mmol/L (22-29); Chloride 103 mmol/L (96-108); Cholesterol 175 mg/dL (<200); Estimated Glomerular Filt Rate > 60; HDL Cholesterol 38 mg/dL (>40); Potassium 4.0 mmol/L (3.3-5.1); Sodium 139 mmol/L (135-145); Total Protein 7.8 g/dL (6.5-8.0); Triglycerides 164 mg/dL (<150)
[2025-04-24 12:45] LABS: Microalbum/Creatinine Ratio Ur 36.8 ug/mg cr (<30)
== END 2025-04-24 08:22 | disposition home or self-care (01) ==
LOC: HO.WFDLDS 08:21
PROVIDERS: Visit Provider Internal Medicine
DX: Z23 Encounter for immunization (principal); Z12.5 Encounter for screening for malignant neoplasm of prostate; E11.42 Type 2 diabetes mellitus with diabetic polyneuropathy; I10 Essential (primary) hypertension; E66.01 Morbid (severe) obesity due to excess calories; Z68.41 Body mass index [BMI] 40.0-44.9, adult
CPT/HCPCS: 36415; 80053; 80061; 82043; 82570; 83036; 85025; 90471; 90656; 96127

== ENCOUNTER 2025-04-24 08:31 | Outpatient (AMB) | payer BC, SELFPAY ==
--- NOTE | 2025-04-24 08:39 | MHC.PC.OV ---
Vital Signs 04/24/25 08:45 Height 5 ft 8 in Weight 269 lb 2 oz BMI 40.9 BP 128/72 Blood Pressure Location Rt brachial Position Sitting Respiration 16 Pulse 65 Pulse Source Pulse Oximeter Temp 98.3 F Temp Source Oral Pulse Oximetry (%) 96 Oxygen Delivery Method Room Air Intake Visit Reasons: DM - see comments Intake Note: dm Open End Spinning Operator Required: No Allergies lisinopril (LISINOPRIL) Allergy (Unknown, Verified 04/24/25 08:42) COUGH Qkzktqh-VZC-EkW Reductase Inhibitor (FJCESUK-JAN-NQW REDUCTASE INHIBITOR) Allergy (Unknown, Verified 04/24/25 08:42) MUSCLE ACHES sulfa Allergy (Unknown, Uncoded 12/12/24 09:21) unknown' Tobacco use date assessed: 04/24/25 Dental Screening Dental Screen Date: 04/24/25 Did you have a dental visit in the last 12 months?: Yes Did you have a dental problem in the last 6 months where you did not have access to dental care?: Yes Was dental information given to patient?: Patient has dentist HPI HPI Comments History of Present Illness Details The patient is a 64 year old male with a past medical history of diabetes, htn, GERD, low back pain, OA, presenting for follow up Type 2 diabetes: A1C 5.8% from 6.1%. On metformin, mounjaro. Tolerating well. Statin intolerant. On ARB. CV: Off hctz. On atenolol, losartan. Blood pressure is well controlled. Weight is fairly stable Denies chest pain, denies shortness of breath OA: s/p b/l knee replacement 2020 and 2021. Dental prophylaxis per ortho. Amox refilled. Left hip is very painful today. Hurts to lay on. Colonoscopy December 2023 - 10 year (?5 year) ROS see HPI PHYSICAL EXAM: GENERAL: Alert and oriented x 3. NAD EYES: EOMI. Anicteric. HENT: Moist mucous membranes. No scleral icterus. No cervical lymphadenopathy. LUNGS: Clear to auscultation bilaterally. CARDIOVASCULAR: Regular rate and rhythm. No murmur. No JVD. ABDOMEN: Soft, non-tender +bs : No visible or palpable hernias. No testicular pain EXTREMITIES: No edema. Non-tender. SKIN: No rashes or lesions. Warm. NEUROLOGIC: No focal neurological deficits. CN II-XII grossly intact PSYCHIATRIC: Cooperative. Appropriate mood and affect [facility] Medical History (Updated 04/24/25 @ 09:50 by Mila Curtis MD) Osteoarthritis Nephrolithiasis Hypertension Type 2 diabetes mellitus Obesity GERD (gastroesophageal reflux disease) Surgical History History of colonoscopy (~12/28/23) History of left knee replacement History of total right knee replacement (TKR) Family History Mother Hypertension Diabetes Social History (Updated 04/24/25 @ 08:44 by Brock Akers MA) Housing: House Alcohol intake: current Patient Tobacco Use Status: Never used Tobacco e-Cigarette/Vaping Use: Never Used Substance Use Type: Marijuana service: No Current occupational status: employed Current occupation: Self employeed Current occupational exposures/hazards: No Cognitive needs: No Hearing needs: No Vision needs: No Questionnaire PHQ-9 Over the last 2 weeks, how often have you been bothered by any of the following problems? 3. Trouble falling or staying asleep, or sleeping too much: more than half the days Source: Developed by Drs. Melvin Donnelly, Yi Crump, Jayy Mccarthy and colleagues, with an educational edson from [employer]. Thrive Questionnaire Date Thrive assessed: 12/08/24 I am a: Patient What is your living situation today?: I have a steady place to live Within the past 12 months, did the food you bought not last and you didn't have the money to get more?: Often true Within the past 12 months, did you worry whether your food would run out before you got money to buy more?: Never true Do you have trouble paying for medicines?: No Do you have trouble getting transportation to medical appointments?: No Do you have trouble paying your heating and electricity bill?: No Do you have trouble taking care of your child, family member or friend?: No Do you have trouble with day-to-day activities such as bathing, preparing meals, shopping, managing finances, etc.?: No Are you currently unemployed and looking for a job?: No Are you interested in more education?: No Please select the resources that you would like help with: None Currently or been in a relationship where the following occur: No concerns reported THRIVE Score: 1 AUDIT C Alcohol Use Questionnaire (AUDIT-C) 1. How often do you have a drink containing alcohol?: 2-3 times a week 2. How many drinks containing alcohol do you have on a typical day when you are drinking?: 1 or 2 3. How often do you have six or more drinks on one occasion?: Less than monthly (once a year) Total Score: 4 Score Reviewed/Action Taken: Yes ANA-7 AMB Questionnaire ANA-7 Date ANA - 7 assessed: 04/24/25 Source: Developed by Drs. Melvin Donnelly, Yi Crump, Jayy Mccarthy and colleagues, with an educational edson from [employer]. ANA-7 Assessment Billing ANA-7 Assessment Tool: ANA-7 Assessment [id number] Physical exam (Primary Care) Vital Signs: Last Vital Signs Temp 98.3 F 04/24/25 08:45 Pulse 65 04/24/25 08:45 Resp 16 04/24/25 08:45 BP 128/72 04/24/25 08:45 Pulse Ox 96 04/24/25 08:45 Oxygen Delivery Method Room Air 04/24/25 08:45 BMI result Body Mass Index 40.9 Tobacco/Smoking Status: Tobacco use Status Tobacco use date assessed 04/24/25 04/24/25 08:49 Patient Tobacco Use Status Never used Tobacco 04/24/25 08:44 e-Cigarette/Vaping Use Never Used 04/24/25 08:44 Thrive Assessment: Date of Thrive Assessment Date Thrive assessed 12/08/24 04/24/25 08:39 Currently or been in a relationship where the following occur: No concerns reported Office Procedures Flu Questionnaire Does the patient have a severe egg allergy?: No Does the patient have severe life threatening allergies?: No Does the patient have a fever or illness today?: No Has the patient ever had Guillain-Lucan Syndrome?: No Has the patient ever had any past reaction to a flu shot?: No Results AMB Hemoglobin A1c AMB Hemoglobin A1c 5.8 % Last Edit by Brock Akers MA on 04/24/25 09:08 Immunizations Fluarix [id number] (PF) 45 mcg (15 mcg x 3)/0.5 mL IM syringe Performing Provider: Mila Curtis MD [place] [facility] Administered by: Morenita Sandoval CMA on 04/24/25 10:33 Dose Route Admin Location Dispensed Lot Number Expiration Date NDC Digital Print Operator 0.5 mL IM Left Deltoid 0.5 mL [id number] 01/01/26 [id number] [place] VIS Given Date VIS Provided VIS Publication Date 04/24/25 Single Vaccine 24 Eligibility Eligibility Date Funding Source Not [facility] Eligible 04/24/25 Private Results Reviewed Results Reviewed: Laboratory Last Values Hgb A1c (Clinic) 5.8 % (4.0-6.0) 04/24/25 09:02 Coding Diagnoses Type 2 diabetes mellitus with diabetic polyneuropathy, without long-term current use of insulin E11.42 Diabetes mellitus group home insulin use: without group home use Diabetes mellitus complication status: with neurologic complications Diabetes mellitus complication detail: with polyneuropathy Primary hypertension I10 Hypertension type: primary hypertension Left hip pain M25.552 Additional Codes ANA-7 Assessment Billing - ANA-7 Assessment Tool: ANA-7 Assessment [id number] ([id number]) Assessment & Plan Assessment & Plan (1) Type 2 diabetes mellitus: Code(s): E11.9 - Type 2 diabetes mellitus without complications Category: Medical Qualifiers: Diabetes mellitus terminal clerk insulin use: without terminal clerk use Diabetes mellitus complication status: with neurologic complications Diabetes mellitus complication detail: with polyneuropathy Qualified Code(s): E11.42 - Type 2 diabetes mellitus with diabetic polyneuropathy (2) Hypertension: Code(s): I10 - Essential (primary) hypertension Category: Medical Qualifiers: Hypertension type: primary hypertension Qualified Code(s): I10 - Essential (primary) hypertension (3) Left hip pain: Code(s): M25.552 - Pain in left hip Category: Medical Orders: Orders AMB Hemoglobin A1c Today E11.42 - Type 2 diabetes mellitus with diabetic polyneuropathy Influenza [id number] Immunization Today Z23 - Encounter for immunization Comprehensive Met. Panel 3 Months E11.42 - Type 2 diabetes mellitus with diabetic polyneuropathy, Z12.5 - Encounter for screening for malignant neoplasm of prostate Hemoglobin A1c 3 Months E11.42 - Type 2 diabetes mellitus with diabetic polyneuropathy, Z12.5 - Encounter for screening for malignant neoplasm of prostate Prostate Specific Antigen 3 Months E11.42 - Type 2 diabetes mellitus with diabetic polyneuropathy, Z12.5 - Encounter for screening for malignant neoplasm of prostate Medications: New prednisone 40 mg (2 x 20 mg) PO DAILY 10 tabs 0RF omeprazole 10 mg PO DAILY 90 caps 3RF Refilled oxycodone Partial Fill upon patient request. 5 mg PO Q6H PRN 28 tabs 0RF pain 7 days amoxicillin 4 cap oral once one hour prior to dental work 2,000 mg (4 x 500 mg) PO ONCE PRN 20 caps 1RF dental prophylaxis losartan 50 mg PO DAILY 90 tabs 3RF tirzepatide (Mounjaro) 7.5 mg (0.5 mL) subcut QWEEK 6 mL 3RF atenolol 100 mg PO DAILY 90 tabs 3RF metformin ER 500 mg PO DAILY 90 tabs 1RF
[2025-04-24 08:45] VITALS: BP 128/72; PULSE 65; RESP 16; TEMP 36.8; O2SAT 96; BMI 40.9
== END 2025-04-24 10:05 | disposition home or self-care (01) ==
LOC: HO.HMCFM 08:32
PROVIDERS: PCP Internal Medicine; Visit Provider Internal Medicine
DX: Z23 Encounter for immunization (principal); E11.42 Type 2 diabetes mellitus with diabetic polyneuropathy